=== PATIENT | female | born 1985 | race Caucasian/White ===

== ENCOUNTER 2018-03-19 18:15 | Emergency (ER) | payer SELFPAY ==
[~2018-03-19] VITALS: Ht 152.4 cm; Wt 73.9 kg
[2018-03-19 18:16] VITALS: Ht 152.4 cm; Wt 73.9 kg
[2018-03-19 20:43] VITALS: BP 145/92
== END 2018-03-19 20:43 | disposition home or self-care (01) ==
LOC: ED 18:15
DX: R04.0 Epistaxis (principal); R03.0 Elevated blood-pressure reading, without diagnosis of hypertension; F17.210 Nicotine dependence, cigarettes, uncomplicated; Z98.890 Other specified postprocedural states; Z71.6 Tobacco abuse counseling
CPT/HCPCS: 99406